=== PATIENT | male | born 1935 | race Hispanic/Latino ===

== ENCOUNTER → 2018-02-05 | Outpatient (CLI) | payer MEDICARE ==
--- NOTE | 2018-02-05 20:52 | Diagnostic Imaging Report ---
PROCEDURE:L-SPINE COMPLETE COMPARISON:CT, CT ABDOMEN/PELVIS WO, 12/11/2014, 8:40. INDICATIONS:lower back pain FINDINGS: 5 nonrib-bearing lumbar vertebrae. Multilevel degenerative disc changes with intervertebral disc space narrowing, predominantly at L5-S1 and spondylosis, predominantly at L1-L2, L2-L3, L3-L4. Vertebral body heights are preserved. No spondylolisthesis. Bilateral oblique views show no spondylolysis. Facet hypertrophy. L5-S1. CONCLUSION: Multilevel degenerative disc and joint disease, as described. Romario Ferrara M.D. Dictated by: Romario Ferrara M.D. on 02/05/2018 at 19:09 Electronically approved by: Romario Ferrara M.D. on 02/05/2018 at 19:09
== END ==
LOC: RAD 17:31
PROVIDERS: ATTEND Family Medicine
DX: M54.5 Low back pain (principal); Z85.46 Personal history of malignant neoplasm of prostate
CPT/HCPCS: 72110

== ENCOUNTER → 2021-04-29 | Outpatient (CLI) | payer MEDICARE | LOC: RAD 15:55 | PROVIDERS: ATTEND Family Medicine | DX: M79.605 Pain in left leg (principal); M79.604 Pain in right leg | CPT/HCPCS: 93970 ==